=== PATIENT | male | born 1965 | race Caucasian/White ===

== ENCOUNTER 2021-09-20 18:56 | Inpatient (IN) ==
[2021-09-20] MEDS ORDERED: SODIUM CHLORIDE 0.9% 1,000 ML IV STA (19:42)
[2021-09-20 20:36] LABS: Basophils # 0.1 10*3/uL (0.0-0.2); Basophils % 0.4 % (0.0-0.8); Hematocrit 51.6 VOL% (42.0-52.0); Hemoglobin 16.7 GM/DL (14.0-18.0); Immature Granulocytes % 0.5 %; Immature Granulocytes Absolute 0.07 #; Lymphocytes # 1.6 10*3/uL (1.4-4.0); Lymphocytes % 11.8 % (21.2-54.2); Mean Corpuscular HGB Conc 32.4 GM/DL (32-36); Mean Platelet Volume 10.6 FL (9.6-12.0); Monocytes # 0.7 10*3/uL (0.11-0.8); Monocytes % 4.9 % (1.7-12.7); Neutrophils % 82.4 % (38.7-73.9); Platelet Count 332 T/CUMM (130-400); Red Blood Count 5.93 MC/CUMM (3.8-5.5); Red Cell Distribution Width 13.4 % (9.3-17.3); White Blood Count 13.6 T/CUMM (4-12)
[2021-09-20 20:46] LABS: PT Patient Result 11.3 SECS (10.5-12.0); Partial Thromboplastin Time 26.5 SECS (23.8-32.1)
[2021-09-20] MEDS ORDERED: ASPIRIN 325 MG TABLET PO STA (21:05)
[2021-09-20] MEDS ORDERED: ENOXAPARIN 100 MG/ML SYRINGE SUBCUT STA (21:05)
[2021-09-20 21:12] LABS: Alanine Aminotransferase 23 U/L (16-61); Albumin 3.7 G/DL (3.4-5.0); Alkaline Phosphatase 76 U/L (45-117); Aspartate Amino Transferase 15 U/L (0-37); Blood Urea Nitrogen 14 MG/DL (7-18); Calcium 9.2 MG/DL (8.5-10.1); Carbon Dioxide 23 MMOL/L (21-32); Chloride 103 MMOL/L (98-107); Estimated Glom Filtration Rate 126 ML/MIN; Glucose 268 MG/DL (74-106); Osmolality,Calculated 284.7 MOS/KG (273-304); Potassium 4.6 MMOL/L (3.5-5.1); Sodium 138 MMOL/L (136-145); Total Protein 7.4 G/DL (6.4-8.2)
[2021-09-20] MEDS ORDERED: guaiFENesin/DM ER 600-30 MG TABLET PO PRN (21:27)
[2021-09-20] MEDS ORDERED: MORPHINE 2 MG/1 ML SYRINGE IV PRN (21:27)
[2021-09-20] MEDS ORDERED: DEXTROSE 10% 250 ML BAG IV PRN (21:27)
[2021-09-20] MEDS ORDERED: ZALEPLON 5 MG CAPSULE PO PRN (21:27)
[2021-09-20] MEDS ORDERED: GLUCAGON 1 MG VIAL IM PRN ×2 (21:27)
[2021-09-20] MEDS ORDERED: NICOTINE 21 MG/24 HR PATCH TRANSDERM PRN (21:27)
[2021-09-20] MEDS ORDERED: diphenhydrAMINE CAP 25 MG CAPSULE PO PRN (21:27)
[2021-09-20] MEDS ORDERED: DEXTROSE 50% 25 GM/50 ML VIAL IV PRN (21:27)
[2021-09-20] MEDS ORDERED: ATORVASTATIN 20 MG TABLET PO SCH (22:00)
[2021-09-20] MEDS: SODIUM CHLORIDE 0.9% 1,000 ML IV SCH (22:45)
[2021-09-21 00:40] LABS: Mucus,Urine Occasional /LPF (Occasional); Squamous Epithelial Cell,Urine Occasional /HPF (0-10)
[2021-09-21 00:41] LABS: Bilirubin,Urine Negative (Negative); Blood, Urine Negative (Negative); Glucose,Urine (UA) 500 mg/dL (Negative); Ketones,Urine >160 mg/dL (Negative); Nitrite,Urine Negative (Negative); Protein,Urine Negative (Negative); Urine Appearance Clear (Clear); Urine Color Yellow (Yellow); Urine Specific Gravity > 1.030 (1.001-1.035); Urine Urobilinogen 0.2 eU/dL (<2.0); Urine pH 5.5 (4.5-8.0)
[2021-09-21 00:49] LABS: Barbiturates Screen,Urine Negative (Negative); Benzodiazepines Screen,Urine Negative (Negative); Cannabinoid Screen,Urine Negative (Negative); Opiate Screen,Urine Negative (Negative); Phencyclidine Screen,Urine Negative (Negative)
[2021-09-21] MEDS: ONDANSETRON 4 MG/2 ML VIAL IV PRN ×2 (00:50→11:18)
[2021-09-21 05:16] LABS: Basophils # 0.1 10*3/uL (0.0-0.2); Basophils % 0.4 % (0.0-0.8); Eosinophils % 0.1 % (0.00-10.9); Hematocrit 48.3 VOL% (42.0-52.0); Hemoglobin 15.8 GM/DL (14.0-18.0); Immature Granulocytes % 0.7 %; Immature Granulocytes Absolute 0.09 #; Lymphocytes # 3.9 10*3/uL (1.4-4.0); Lymphocytes % 29.2 % (21.2-54.2); Mean Corpuscular HGB Conc 32.7 GM/DL (32-36); Mean Platelet Volume 11.3 FL (9.6-12.0); Monocytes # 0.9 10*3/uL (0.11-0.8); Monocytes % 6.9 % (1.7-12.7); Neutrophils % 62.7 % (38.7-73.9); Platelet Count 316 T/CUMM (130-400); Red Blood Count 5.55 MC/CUMM (3.8-5.5); Red Cell Distribution Width 13.5 % (9.3-17.3); White Blood Count 13.4 T/CUMM (4-12)
[2021-09-21 05:42] LABS: Calcium 8.7 MG/DL (8.5-10.1); Osmolality,Calculated 281.5 MOS/KG (273-304); Potassium 3.7 MMOL/L (3.5-5.1); Risk Ratio 4.36; VLDL Cholesterol 17.6 MG/DL
[2021-09-21] MEDS: SODIUM CHLORIDE 0.9% 1,000 ML IV SCH ×3 (06:14→22:06)
[2021-09-21] MEDS: INSULIN LISPRO 100 UNIT/ML SUBCUT SCH ×4 (08:33→21:57)
[2021-09-21] MEDS: ACETAMINOPHEN 325 MG TABLET PO PRN ×2 (08:35→21:57)
[2021-09-21] MEDS ORDERED: ASPIRIN EC 325 MG TABLET PO SCH (09:00)
[2021-09-21] MEDS ORDERED: HEPARIN 5,000 UNIT/1 ML VIAL SUBCUT SCH (09:00)
[2021-09-21] MEDS ORDERED: LORazepam 2 MG/1 ML VIAL IV ONE (13:00)
[2021-09-21] MEDS: ATORVASTATIN 40 MG TABLET PO SCH (21:57)
[2021-09-22 04:05] LABS: Basophils # 0.1 10*3/uL (0.0-0.2); Basophils % 0.7 % (0.0-0.8); Eosinophils % 0.1 % (0.00-10.9); Hematocrit 47.7 VOL% (42.0-52.0); Hemoglobin 15.9 GM/DL (14.0-18.0); Immature Granulocytes % 0.8 %; Immature Granulocytes Absolute 0.11 #; Lymphocytes # 3.3 10*3/uL (1.4-4.0); Lymphocytes % 25.1 % (21.2-54.2); Mean Corpuscular HGB Conc 33.3 GM/DL (32-36); Mean Platelet Volume 10.9 FL (9.6-12.0); Monocytes # 1.2 10*3/uL (0.11-0.8); Neutrophils % 64.3 % (38.7-73.9); Platelet Count 320 T/CUMM (130-400); Red Blood Count 5.48 MC/CUMM (3.8-5.5); Red Cell Distribution Width 13.3 % (9.3-17.3); White Blood Count 13.3 T/CUMM (4-12)
[2021-09-22 04:21] LABS: Calcium 8.7 MG/DL (8.5-10.1); Osmolality,Calculated 278.7 MOS/KG (273-304); Potassium 3.7 MMOL/L (3.5-5.1)
[2021-09-22] MEDS: ACETAMINOPHEN 325 MG TABLET PO PRN ×3 (04:36→18:26)
[2021-09-22] MEDS: SODIUM CHLORIDE 0.9% 1,000 ML IV SCH ×3 (06:01→23:31)
[2021-09-22] MEDS ORDERED: MAGNESIUM SULF RIDER 2 GM/50 ML PREMIX IV ONE (08:00)
[2021-09-22] MEDS: INSULIN LISPRO 100 UNIT/ML SUBCUT SCH ×4 (09:03→21:05)
[2021-09-22] MEDS: ASPIRIN EC 81 MG TABLET PO SCH (10:26)
[2021-09-22] MEDS: PANTOPRAZOLE 40 MG TABLET PO SCH (10:27)
[2021-09-22] MEDS ORDERED: LIDOCAINE 2% 5 ML VIAL ONE (13:16)
[2021-09-22] MEDS ORDERED: propofoL 200 MG/20 ML VIAL IV ONE (13:16)
[2021-09-22] MEDS ORDERED: GLUCAGON 1 MG VIAL IM PRN (14:58)
[2021-09-22] MEDS ORDERED: DEXTROSE 10% 250 ML BAG IV PRN (15:00)
[2021-09-22] MEDS ORDERED: INSULIN GLARGINE 100 UNIT/ML SUBCUT SCH (21:00)
[2021-09-22] MEDS: ATORVASTATIN 40 MG TABLET PO SCH (21:05)
[2021-09-23] MEDS: ACETAMINOPHEN 325 MG TABLET PO PRN ×2 (02:16→10:35)
[2021-09-23] MEDS: SODIUM CHLORIDE 0.9% 1,000 ML IV SCH ×4 (02:17→20:27)
[2021-09-23 05:22] LABS: Basophils # 0.1 10*3/uL (0.0-0.2); Basophils % 0.6 % (0.0-0.8); Eosinophils % 0.1 % (0.00-10.9); Hemoglobin 16.2 GM/DL (14.0-18.0); Immature Granulocytes % 0.7 %; Immature Granulocytes Absolute 0.08 #; Lymphocytes % 24.6 % (21.2-54.2); Mean Corpuscular HGB Conc 33.8 GM/DL (32-36); Mean Corpuscular Volume 85.9 FL (87-102); Mean Platelet Volume 11.1 FL (9.6-12.0); Monocytes % 8.1 % (1.7-12.7); Neutrophils % 65.9 % (38.7-73.9); Platelet Count 310 T/CUMM (130-400); Red Blood Count 5.59 MC/CUMM (3.8-5.5); Red Cell Distribution Width 13.5 % (9.3-17.3); White Blood Count 12.1 T/CUMM (4-12)
[2021-09-23 05:41] LABS: Calcium 8.6 MG/DL (8.5-10.1); Osmolality,Calculated 279.7 MOS/KG (273-304); Potassium 3.4 MMOL/L (3.5-5.1)
[2021-09-23] MEDS ORDERED: MAGNESIUM SULF RIDER 2 GM/50 ML PREMIX IV ONE (07:19)
[2021-09-23] MEDS ORDERED: POTASSIUM CHLORIDE 20 MEQ TABLET PO ONE (07:19)
[2021-09-23] MEDS: ASPIRIN EC 81 MG TABLET PO SCH (08:12)
[2021-09-23] MEDS: lisinopriL 5 MG TABLET PO SCH (08:12)
[2021-09-23] MEDS: PANTOPRAZOLE 40 MG TABLET PO SCH (08:12)
[2021-09-23] MEDS: INSULIN LISPRO 100 UNIT/ML SUBCUT SCH ×4 (08:22→20:27)
[2021-09-23] MEDS ORDERED: KETOROLAC 15 MG/1 ML VIAL IV ONE ×2 (10:55→20:03)
[2021-09-23] MEDS ORDERED: diphenhydrAMINE 50 MG/1 ML VIAL IV ONE ×2 (10:55→20:01)
[2021-09-23] MEDS ORDERED: METOCLOPRAMIDE 10 MG/2 ML VIAL IV ONE ×2 (10:56→20:02)
[2021-09-23] MEDS: INSULIN GLARGINE 100 UNIT/ML SUBCUT SCH (20:27)
[2021-09-23] MEDS: ATORVASTATIN 40 MG TABLET PO SCH (20:27)
[2021-09-24] MEDS: SODIUM CHLORIDE 0.9% 1,000 ML IV SCH ×3 (00:33→11:04)
[2021-09-24] MEDS: ACETAMINOPHEN 325 MG TABLET PO PRN ×4 (03:18→18:14)
[2021-09-24 06:30] LABS: Basophils # 0.1 10*3/uL (0.0-0.2); Basophils % 0.8 % (0.0-0.8); Eosinophils % 0.3 % (0.00-10.9); Hematocrit 47.8 VOL% (42.0-52.0); Hemoglobin 15.9 GM/DL (14.0-18.0); Immature Granulocytes % 0.5 %; Immature Granulocytes Absolute 0.06 #; Lymphocytes # 3.3 10*3/uL (1.4-4.0); Lymphocytes % 25.8 % (21.2-54.2); Mean Corpuscular HGB Conc 33.3 GM/DL (32-36); Mean Platelet Volume 10.6 FL (9.6-12.0); Monocytes # 1.2 10*3/uL (0.11-0.8); Monocytes % 9.5 % (1.7-12.7); Neutrophils % 63.1 % (38.7-73.9); Platelet Count 295 T/CUMM (130-400); Red Blood Count 5.56 MC/CUMM (3.8-5.5); Red Cell Distribution Width 13.3 % (9.3-17.3); White Blood Count 12.8 T/CUMM (4-12)
[2021-09-24 06:59] LABS: Osmolality,Calculated 278.7 MOS/KG (273-304); Potassium 3.1 MMOL/L (3.5-5.1)
[2021-09-24] MEDS: ASPIRIN EC 81 MG TABLET PO SCH (08:33)
[2021-09-24] MEDS: lisinopriL 5 MG TABLET PO SCH (08:33)
[2021-09-24] MEDS: PANTOPRAZOLE 40 MG TABLET PO SCH (08:33)
[2021-09-24] MEDS: INSULIN LISPRO 100 UNIT/ML SUBCUT SCH ×4 (08:33→20:54)
[2021-09-24] MEDS ORDERED: POTASSIUM CHLORIDE 20 MEQ TABLET PO ONE (09:00)
[2021-09-24] MEDS: AMOXICILLIN/CLAV 500 MG TABLET PO SCH ×2 (11:00→21:49)
[2021-09-24] MEDS: FLUTICASONE 50 MCG NASAL SPRAY 16 GM BOTTLE BOTH NARES SCH ×2 (11:00→20:53)
[2021-09-24] MEDS: CETIRIZINE 10 MG TABLET PO SCH (11:01)
[2021-09-24] MEDS: ONDANSETRON 4 MG/2 ML VIAL IV PRN (15:54)
[2021-09-24] MEDS: ATORVASTATIN 40 MG TABLET PO SCH (20:53)
[2021-09-24] MEDS: INSULIN GLARGINE 100 UNIT/ML SUBCUT SCH (20:54)
[2021-09-25 06:09] LABS: Basophils # 0.1 10*3/uL (0.0-0.2); Basophils % 0.4 % (0.0-0.8); Eosinophils # 0.1 10*3/uL (0.0-0.87); Eosinophils % 0.5 % (0.00-10.9); Hemoglobin 16.8 GM/DL (14.0-18.0); Immature Granulocytes % 0.5 %; Immature Granulocytes Absolute 0.06 #; Lymphocytes # 4.2 10*3/uL (1.4-4.0); Lymphocytes % 32.9 % (21.2-54.2); Mean Corpuscular HGB Conc 33.6 GM/DL (32-36); Mean Corpuscular Volume 86.1 FL (87-102); Mean Platelet Volume 11.7 FL (9.6-12.0); Monocytes # 1.2 10*3/uL (0.11-0.8); Monocytes % 9.6 % (1.7-12.7); Neutrophils % 56.1 % (38.7-73.9); Platelet Count 328 T/CUMM (130-400); Red Blood Count 5.81 MC/CUMM (3.8-5.5); Red Cell Distribution Width 13.5 % (9.3-17.3); White Blood Count 12.8 T/CUMM (4-12)
[2021-09-25 06:41] LABS: Calcium 9.4 MG/DL (8.5-10.1); Osmolality,Calculated 272.1 MOS/KG (273-304); Potassium 3.4 MMOL/L (3.5-5.1)
[2021-09-25] MEDS: ONDANSETRON 4 MG/2 ML VIAL IV PRN (07:23)
[2021-09-25] MEDS: ACETAMINOPHEN 325 MG TABLET PO PRN (07:23)
[2021-09-25] MEDS ORDERED: POTASSIUM CHLORIDE 20 MEQ TABLET PO ONE (08:18)
[2021-09-25] MEDS ORDERED: lisinopriL 10 MG TABLET PO SCH (09:00)
[2021-09-25] MEDS: FLUTICASONE 50 MCG NASAL SPRAY 16 GM BOTTLE BOTH NARES SCH (09:01)
[2021-09-25] MEDS: INSULIN LISPRO 100 UNIT/ML SUBCUT SCH ×2 (09:01→12:20)
[2021-09-25] MEDS: CETIRIZINE 10 MG TABLET PO SCH (09:02)
[2021-09-25] MEDS: ASPIRIN EC 81 MG TABLET PO SCH (09:02)
[2021-09-25] MEDS: AMOXICILLIN/CLAV 500 MG TABLET PO SCH (09:02)
[2021-09-25] MEDS: PANTOPRAZOLE 40 MG TABLET PO SCH (09:02)
[2021-09-25 11:07] VITALS: BP 126/98
[2021-09-25] MEDS ORDERED: KETOROLAC 15 MG/1 ML VIAL IV ONE (11:15)
[2021-09-25] MEDS ORDERED: METOCLOPRAMIDE 10 MG/2 ML VIAL IV ONE (11:15)
[2021-09-25] MEDS ORDERED: diphenhydrAMINE 50 MG/1 ML VIAL IV ONE (11:15)
[2021-09-25] MEDS ORDERED: PROMETHAZINE 25 MG/1 ML VIAL IM ONE (11:41)
[2021-09-25] MEDS ORDERED: traMADol 50 MG TABLET PO PRN (16:10)
[2021-09-25] MEDS ORDERED: AMITRIPTYLINE 25 MG TABLET PO SCH (21:00)
== END 2021-09-25 16:20 | DRG 66 ==
LOC: N.ED 18:56 → N.EDINP 21:27 → SUATTDRO 21:27 → N.3E 09-21 00:05
PROVIDERS: ADMIT Internal Medicine; ATTEND Family Medicine